=== PATIENT | female | born 1960 | race Caucasian/White ===

== ENCOUNTER → 2017-05-09 | Outpatient (CLI) | payer BC ==
[~2017-05-09] MED LIST: CIPRO500 MG PO; PROMS25 WY RECTAL; XANAX 0.25 MG0.25 MG PO; ZOFRAN ODT4 MG DISSOLVE; ZOLOFT25 MG PO
== END ==
LOC: M.RAD 10:07
DX: Z12.31 Encounter for screening mammogram for malignant neoplasm of breast (principal)

== ENCOUNTER → 2018-06-30 | Outpatient (CLI) | payer OTHER | LOC: M.RAD 06-24 09:20 | DX: Z12.31 Encounter for screening mammogram for malignant neoplasm of breast (principal) ==

== ENCOUNTER → 2018-10-16 | Outpatient (CLI) | payer OTHER | LOC: M.ULTRA 08-11 15:00 | DX: R92.2 Inconclusive mammogram (principal) ==

== ENCOUNTER → 2019-11-03 | Outpatient (CLI) | payer OTHER | LOC: M.RAD 09:30 | PROVIDERS: ATTEND Family Medicine | DX: Z12.31 Encounter for screening mammogram for malignant neoplasm of breast (principal) ==